=== PATIENT | male | born 1950 | race Caucasian/White ===

== ENCOUNTER 2016-12-24 14:17 | Inpatient (IN) | payer BC ==
[2016-12-24] MEDS ORDERED: Sodium Chloride 0.9% 10 ML Syringe FLUSH PRN (15:01)
--- NOTE | 2016-12-24 15:03 | EDM.PDOC ---
ED HPI GENERAL MEDICAL PROBLEM - General Chief Complaint: Lower Extremity Injury/Pain Stated Complaint: Right foot pain Time Seen by Provider: 12/24/16 14:45 Source of Information: Reports: Patient, RN Notes Reviewed History Limitations: Reports: No Limitations - History of Present Illness INITIAL COMMENTS - FREE TEXT/NARRATIVE: 66 year old male presents to the Ed with two week history of right foot pain. He has a history of intermittent dermatitis to his lower extremities. He says that he developed dermatitis to both his feet about two weeks ago. The rash becomes red, itchy and scaley. The right right has become painful and swollen. He has a scab to the foot with surrounding erythema. He says the pain is severe. He denies fever, chills, or sweats. He denies history of MRSA. He denies calf pain, swelling or erythema. He is diabetic but denies peripheral neuropathy. He was initially evaluated at [facility] in [place]. He was placed on Clindamycin and has taken 6 doses. Right Feet Pain Score (Numeric/FACES): 4 - Related Data Allergies Allergy/AdvReac Type Severity Reaction Status Date / Time IV dye Allergy Renal Uncoded 12/24/16 15:13 Failure Home Meds: Home Meds Aspirin 81 mg PO DAILY 12/24/16 [History] Clindamycin HCl 300 mg PO QID 12/24/16 [History] Dulaglutide [Trulicity] 0.75 mg SQ WEEKLY 12/24/16 [History] Escitalopram [Lexapro] 20 mg PO DAILY 12/24/16 [History] Furosemide 40 mg PO DAILY 12/24/16 [History] Hydrocodone/Acetaminophen [Lorcet 5-325 mg Tablet] 1 each PO ASDIRECTED PRN [History] Liraglutide [Victoza] 1.8 mg SUBCUT DAILY 12/24/16 [History] Metoprolol Succinate [Toprol XL] 100 mg PO BID 12/24/16 [History] Omeprazole 20 mg PO DAILY 12/24/16 [History] Pravastatin [Pravachol] 20 mg PO BEDTIME 12/24/16 [History] amLODIPine [Norvasc] 10 mg PO BEDTIME 12/24/16 [History] hydrOXYzine HCl [Atarax] 25 mg PO ASDIRECTED PRN 12/24/16 [History] metFORMIN HCl [Metformin HCl] 500 mg PO BID 12/24/16 [History] Past Medical History Cardiovascular History: Reports: Hypertension, [place], Stents Other Cardiovascular History: stents x2 Respiratory History: Reports: COPD, Other (See Below) Other Respiratory History: Emphysema Endocrine/Metabolic History: Reports: Diabetes, Type II - Past Surgical History Cardiovascular Surgical History: Reports: Coronary Artery Stent Social & Family History - Family History Family Medical History: Noncontributory - Tobacco Use Packs/Tins Daily: 0.5 - Caffeine Use Caffeine Use: Reports: Coffee - Recreational Drug Use Recreational Drug Use: No Review of Systems - Review of Systems Review Of Systems: See Below Constitutional: Reports: No Symptoms. Denies: Chills, Fever Respiratory: Reports: No Symptoms. Denies: Shortness of Breath, Cough Cardiovascular: Reports: No Symptoms. Denies: Chest Pain Musculoskeletal: Reports: Foot Pain Skin: Reports: Rash, Erythema, Wound, Change in Color Neurological: Reports: No Symptoms. Denies: Numbness, Tingling, Weakness ED EXAM, GENERAL - Physical Exam Exam: See Below Exam Limited By: No Limitations General Appearance: Alert, WD/WN, No Apparent Distress Respiratory/Chest: No Respiratory Distress, Lungs Clear, Normal Breath Sounds Cardiovascular: Normal Peripheral Pulses, Regular Rate, Rhythm, No Murmur GI/Abdominal: Normal Bowel Sounds, Soft, Non-Tender Extremities: Joint Swelling (right foot, ankle ), Increased Warmth (right foot ) , Redness (right foot ) Neurological: Alert, Oriented, Normal Cognition, No Motor/Sensory Deficits Skin Exam: Warm, Dry, Intact, Erythema (right foot ), Increased Warmth, Rash, Other (Scab to dorsal aspect of right foot with surrounding warmth and erythema. CMS intact distally. ) Course - Vital Signs Last Recorded V/S: Last Vital Signs Temp 99.1 F 12/24/16 14:30 Pulse 92 12/24/16 14:30 Resp 18 12/24/16 14:30 BP 157/101 H 12/24/16 14:30 Pulse Ox 94 L 12/24/16 14:30 - Orders/Labs/Meds Orders: Active Orders 24 hr Category Date Time Status Peripheral IV Care [RC] . DIRECTED Care 12/24/16 15:02 Active Sodium Chloride 0.9% [Saline Flush] Med 12/24/16 15:01 Active 10 ml FLUSH ASDIRECTED PRN Peripheral IV Insertion Adult [OM.PC] Stat Oth 12/24/16 15:01 Ordered Medication Orders Sodium Chloride (Saline Flush) 10 ml FLUSH ASDIRECTED PRN PRN Reason: Keep Vein Open Labs: Laboratory Tests 12/24/16 12/24/16 Range/Units 15:02 15:02 WBC 10.96 H (4.23-9.07) K/mm3 RBC 4.94 (4.63-6.08) M/mm3 Hgb 14.8 (13.7-17.5) gm/L Hct 42.1 (40.1-51.0) % MCV 85.2 (79.0-92.2) fl MCH 30.0 (25.7-32.2) pg MCHC 35.2 (32.2-35.5) g/dl RDW Std Deviation 39.7 (35.1-43.9) fL Plt Count 274 (163-337) K/mm3 MPV 9.9 (9.4-12.3) fl Neutrophils % (Manual) 62 H (40-60) % Band Neutrophils % 0 (0-10) % Lymphocytes % (Manual) 31 (20-40) % Atypical Lymphs % 0 % Monocytes % (Manual) 3 (2-10) % Eosinophils % (Manual) 2 (0.8-7.0) % Basophils % (Manual) 2 H (0.2-1.2) Platelet Estimate Adequate Plt Morphology Comment Normal RBC Morph Comment Normal Sodium 140 (136-145) mEq/L Potassium 3.7 (3.5-5.1) mEq/L Chloride 102 (98-107) mEq/L Carbon Dioxide 27 (21-32) mEq/L Anion Gap 14.7 (5-15) BUN 9 (7-18) mg/dL Creatinine 1.0 (0.7-1.3) mg/dL Est Cr Clr Drug Dosing 81.91 mL/min Estimated GFR (MDRD) > 60 (>60) mL/min BUN/Creatinine Ratio 9.0 L (14-18) Glucose 229 H (80-115) mg/dL Calcium 8.7 (8.5-10.1) mg/dL Total Bilirubin 0.4 (0.2-1.0) mg/dL AST 24 (15-37) U/L ALT 46 (16-63) U/L Alkaline Phosphatase 66 (46-116) U/L C-Reactive Protein 4.9 H* (<1.0) mg/dL Total Protein 6.8 (6.4-8.2) g/dl Albumin 3.3 L (3.4-5.0) g/dl Globulin 3.5 gm/dL Albumin/Globulin Ratio 0.9 L (1-2) Meds: Medications Generic Name Dose Route Start Last Admin Trade Name Freq PRN Reason Stop Dose Admin Sodium Chloride 10 ml 12/24/16 15:01 Saline Flush FLUSH ASDIRECTED PRN Keep Vein Open - Re-Assessments/Exams Free Text/Narrative Re-Assessment/Exam: CBC reveals mildly elevated WBC of 10.96. CMP is normal except for glucose of 229. CRP is 4.9. Due to history of DM, severity of the swelling, and suspected abscess I feel the patient needs to be admitted for IV antibiotics. Spoke to Dr. Genao who has accepted care of patient for abscess and cellulitis. I also consulted general surgeon rigging and controls aircraft mechanic Dr. Sutherland. He will come see the patient in the ED and decide if surgical debriedment is needed. Departure - Departure Time of Disposition: 16:51 Disposition: Admitted As Inpatient 68 Condition: Fair Clinical Impression: Abscess Cellulitis Qualifiers: Site of cellulitis: extremity Site of cellulitis of extremity: lower extremity Laterality: right Qualified Code(s): L03.115 - Cellulitis of right lower limb - Discharge Information Referrals: Crissy Keating NP [Primary Care Provider] - Forms: ED Department Discharge - My Orders Last 24 Hours: My Active Orders 12/24/16 15:01 Sodium Chloride 0.9% [Saline Flush] 10 ml FLUSH ASDIRECTED PRN Peripheral IV Insertion Adult [OM.PC] Stat 12/24/16 15:02 Peripheral IV Care [RC] . DIRECTED - Assessment/Plan Last 24 Hours: My Active Orders 12/24/16 15:01 Sodium Chloride 0.9% [Saline Flush] 10 ml FLUSH ASDIRECTED PRN Peripheral IV Insertion Adult [OM.PC] Stat 12/24/16 15:02 Peripheral IV Care [RC] . DIRECTED
[2016-12-24] MEDS ORDERED: HYDROmorphone 1 MG/ML Syringe IVPUSH ONE (17:40)
--- NOTE | 2016-12-24 18:37 | PCM.HP ---
H&P History of Present Illness - General Date of Service: 12/24/16 Admit Problem/Dx: SSTI with Abscess Source of Information: Patient, Family, Provider, RN Notes Reviewed History Limitations: Reports: Physical Impairment - History of Present Illness Initial Comments - Free Text/Narative: This is a 66-year-old white male with past medical history of hypertension, HI status post stents placement 4 years ago, history of COPD, quit smoking 4 years ago after HI, AYANNA on CPAP, and obesity who presents to emergency department with complains of two-week history of right foot pain and was found to have diabetic wound abscess. His chief complaint started with dermatitis on dorsal feet. The rash then became red, itchy, and scaly and slowly became painful and swollen. Patient was initially seen at [facility] in [place]. He was given Clindamycin and has taken 6 doses but without much improvement of his symptoms. Patient carries a history of type 2 diabetes that is poorly controlled. He has been a diabetic for 3 years now. He checks his sugar routinely twice a day. His average sugar runs in the 250s. He is unsure what his last A1c level is. Patient does not see a diabetic specialist. He has not been evaluated by podiatry for routine foot care. His initial workup in emergency department shows a CBC remarkable for WBC of 10.96, neutrophils of 62% and basophils of 2%. His chemistry is remarkable for glucose of 229, CRP of 4.9 and albumin 2.3. Patient has already seen and evaluated by general surgery. He is scheduled for surgical debridement tomorrow. Patient is being admitted for medical management of diabetes wound abscess. He is full code. Right Feet Pain Score (Numeric/FACES): 4 - Related Data Allergies/Adverse Reactions: Allergies Allergy/AdvReac Type Severity Reaction Status Date / Time IV dye Allergy Renal Uncoded 12/24/16 15:13 Failure Home Medications: Home Meds Aspirin 81 mg PO DAILY 12/24/16 [History] Clindamycin HCl 300 mg PO QID 12/24/16 [History] Dulaglutide [Trulicity] 0.75 mg SQ WEEKLY 12/24/16 [History] Escitalopram [Lexapro] 20 mg PO DAILY 12/24/16 [History] Furosemide 40 mg PO DAILY 12/24/16 [History] Hydrocodone/Acetaminophen [Lorcet 5-325 mg Tablet] 1 each PO ASDIRECTED PRN [History] Liraglutide [Victoza] 1.8 mg SUBCUT DAILY 12/24/16 [History] Metoprolol Succinate [Toprol XL] 100 mg PO BID 12/24/16 [History] Omeprazole 20 mg PO DAILY 12/24/16 [History] Pravastatin [Pravachol] 20 mg PO BEDTIME 12/24/16 [History] amLODIPine [Norvasc] 10 mg PO BEDTIME 12/24/16 [History] hydrOXYzine HCl [Atarax] 25 mg PO ASDIRECTED PRN 12/24/16 [History] metFORMIN HCl [Metformin HCl] 500 mg PO BID 12/24/16 [History] Past Medical History Cardiovascular History: Reports: Hypertension, HI, Stents Other Cardiovascular History: stents x2 Respiratory History: Reports: COPD, Other (See Below) Other Respiratory History: Emphysema Psychiatric History: Reports: Depression Endocrine/Metabolic History: Reports: Diabetes, Type II Immunologic History: Reports: None Oncologic (Cancer) History: Reports: None Other Dermatologic History: dermatitis - Infectious Disease History Infectious Disease History: Reports: None - Past Surgical History Cardiovascular Surgical History: Reports: Coronary Artery Stent Social & Family History - Family History Family Medical History: Noncontributory - Tobacco Use Smoking Status *Q: Former Smoker Years of Tobacco use: 55 Packs/Tins Daily: 0.5 Used Tobacco, but Quit: No Tobacco Use Comment: pt. quit smoking cigarrettes after HI. continues to chew .5 cans daily Second Hand Smoke Exposure: No - Caffeine Use Caffeine Use: Reports: Coffee - Recreational Drug Use Recreational Drug Use: No H&P Review of Systems - Review of Systems: Review Of Systems: See Below General: Denies: Fever, Chills, Malaise, Weakness, Fatigue HEENT: Reports: No Symptoms Pulmonary: Denies: Shortness of Breath Cardiovascular: Denies: Chest Pain, Palpitations, Dyspnea on Exertion, Edema, Lightheadedness, Syncope Gastrointestinal: Denies: Abdominal Pain, Decreased Appetite, Nausea, Vomiting Genitourinary: Reports: No Symptoms Musculoskeletal: Reports: No Symptoms, Foot Pain Skin: Reports: Erythema, Wound, Change in Color. Denies: Cyanosis, Jaundice Psychiatric: Denies: Depression, Mood Lability, Anxiety, Agitation, Cravings, Hallucinations, Suicidal Ideation Neurological: Reports: Pre-Existing Deficit, Difficulty Walking, Gait Disturbance. Denies: Confusion, Dizziness, Headache, Numbness, Seizure, Tingling, Weakness Hematologic/Lymphatic: Reports: No Symptoms Immunologic: Reports: No Symptoms Exam - Exam Exam: See Below - Vital Signs Vital Signs: Last Vital Signs Temp 37.3 C 12/24/16 14:30 Pulse 92 12/24/16 14:30 Resp 18 12/24/16 14:30 BP 157/101 H 12/24/16 14:30 Pulse Ox 94 L 12/24/16 14:30 Weight: 120.157 kg - Exam General: Alert, Oriented, Cooperative, Mild Distress, Other (Obese) HEENT: Conjunctiva Clear, EACs Clear, EOMI, Hearing Intact, Mucosa Moist & [place] , Nares Patent, Normal Nasal Septum, Posterior Pharynx Clear, Pupils Equal, Pupils Reactive Neck: Supple, Trachea Midline, +2 Carotid Pulse wo Bruit Lungs: Clear to Auscultation, Normal Respiratory Effort Cardiovascular: Regular Rate, Regular Rhythm GI/Abdominal Exam: Normal Bowel Sounds, Soft, Non-Tender, No Distention, No Abnormal Bruit (Male) Exam: Deferred Rectal (Males) Exam: Deferred Back Exam: Normal Inspection, Decreased Range of Motion Extremities: Normal Inspection, Normal Range of Motion, Non-Tender, No Pedal Edema, Normal Capillary Refill, Pedal Edema (right foot) Peripheral Pulses: 0: Dorsalis Pedis (R), 2+: Posterior Tibial (L), Dorsalis Pedis (L) Skin: Warm, Dry, Intact Skin Alteration Location (Drawings Not To Scale): 1 - superificial erythema 2 - Raised lesion with eschar surrounded by erythema, edema, tender to touch and increased warmth Neuro Extensive - Mental Status: Oriented x3, Normal Cognition, Memory Intact Neuro Extensive - Motor, Sensory, Reflexes: CN II-XII Intact (limited but grossly intact), Abnormal Gait Psychiatric: Alert, Normal Affect, Normal Mood - Patient Data Result Diagrams: 12/25/16 05:49 12/25/16 05:49 *Q Meaningful Use (ADM) - VTE *Q VTE Criteria *Q: - Stroke *Q Stroke Criteria *Q: - AMI *Q AMI Criteria *Q: Problem List Initiated/Reviewed/Updated: Yes Orders Last 24hrs: Active Orders 24 hr Category Date Time Status Code Status [Resuscitation Status] Routine Resus Stat 12/24/16 18:30 Ordered Medication Orders Sodium Chloride (Saline Flush) 10 ml FLUSH ASDIRECTED PRN PRN Reason: Keep Vein Open Last Admin: 12/24/16 17:43 Dose: 10 ml Assessment/Plan Comment:: Assessment/Plan: Acute: Diabetic Foot Wound with Abscess - Risk Factors: Poorly Controlled DM and Hx/o Intermittent Dermatitis - Failed outpatient treatment with Clindamycin - Poor understanding of overall health and diabetes - IV Vancomycin 1 gram BID with Probiotic-pharmacy to renally dose - GS consult with Dr. Sutherland for possible ID in AM Hyperglycemia with DM2 - Poorly controlled: high risk for further accelerated cardiovascular disease - BS on average 150 per ; BS on admission 229 - Unsure of last A1C level is - He is on Victoza, Metformin and Trulicity - Hold Victoza and Trulicity - Start Glipizide 5 mg po BID - A1C check, Urine Microalbumin, Lipid panel in AM - Accu-check QID/HS and ISS - Offered Jardiance on discharge Leukocytosis - 2/2 Above - WBC 10.96 and CRP 4.9 Chronic: HTN Hx/o HI with 2 stents 4 years ago Hx/o COPD, quit smoking 4 years ago DM2 AYANNA on CPAP Peripheral Edema Obesity with BMI of 35.9 Plan: Admit to Med-Surg Routine AM Labs Resume Some Home Meds Bring CPAP tomorrow NPO midnight AHA and ADA diet after surgery in AM PT/OT consult Diabetic Education and Dietary consult SW/CM for d/c planning Additional orders as above Code status: Provider patient and info on Jardiance with cardiovascular benefit.
[2016-12-24] MEDS ORDERED: Polyethylene Glycol 3350 Powder 17 GM Packet PO PRN (19:24)
[2016-12-24] MEDS ORDERED: Bisacodyl 5 MG Tab PO PRN (19:24)
[2016-12-24] MEDS ORDERED: Temazepam 15 MG Cap PO PRN (19:24)
[2016-12-24] MEDS ORDERED: Albuterol/Ipratropium 3.0-0.5 MG/3 ML Neb Soln NEB PRN (19:24)
[2016-12-24] MEDS ORDERED: HYDROmorphone 1 MG/ML Syringe IVPUSH PRN (19:24)
[2016-12-24] MEDS ORDERED: Acetaminophen 325 MG Tab PO PRN (19:24)
[2016-12-24] MEDS ORDERED: Promethazine 12.5 MG in Sodium Chloride 0.9% 50 ML IV PRN (19:24)
[2016-12-24] MEDS ORDERED: Ondansetron 4 MG/2 ML SDV IV PRN (19:24)
[2016-12-24] MEDS ORDERED: Docusate Sodium 100 MG Cap PO PRN (19:24)
[2016-12-24] MEDS ORDERED: LORazepam 2 MG/ML MDV IV PRN (19:24)
[2016-12-24] MEDS ORDERED: Acetaminophen/HYDROcodone 325-5 MG Tab PO PRN (19:24)
[2016-12-24] MEDS ORDERED: hydrOXYzine HCl 25 MG Tab PO PRN (19:33)
[2016-12-24] MEDS ORDERED: Metoprolol Tartrate 5 MG/5 ML SDV IVPUSH PRN (19:35)
[2016-12-24] MEDS ORDERED: hydrALAZINE 20 MG/ML SDV IVPUSH PRN (19:35)
[2016-12-24] MEDS ORDERED: 50% Dextrose in Water 50 ML Syringe IVPUSH PRN (19:37)
[2016-12-24] MEDS: Insulin Aspart 100 Units/ML 3 ML Pen SUBCUT SCH ×2 (21:39→22:47)
[2016-12-24] MEDS: Vancomycin 1 GM, Vancomycin 500 MG in Sodium Chloride 0.9% 500 ML IV SCH (21:41)
[2016-12-24] MEDS: metFORMIN 500 MG Tab PO SCH (21:43)
[2016-12-24] MEDS: glipiZIDE 5 MG Tab.ER PO SCH (21:44)
[2016-12-24] MEDS: Simvastatin 10 MG Tab PO SCH (21:47)
[2016-12-24] MEDS: amLODIPine 10 MG Tab PO SCH (21:47)
[2016-12-25] MEDS: Vancomycin 1 GM, Vancomycin 500 MG in Sodium Chloride 0.9% 500 ML IV SCH ×2 (08:45→20:45)
[2016-12-25] MEDS: Insulin Aspart 100 Units/ML 3 ML Pen SUBCUT SCH ×5 (08:45→23:15)
[2016-12-25] MEDS: Metoprolol Succinate 50 MG Tab.ER PO SCH ×2 (08:53→20:43)
--- NOTE | 2016-12-25 08:53 | PCM.PREANE ---
Preanesthetic Assessment - Anesthesia/Transfusion/Family Hx Anesthesia History: Prior Anesthesia Without Reaction Family History of Anesthesia Reaction: No Transfusion History: No Prior Transfusion(s) - Review of Systems General: No Symptoms Pulmonary: No Symptoms Cardiovascular: No Symptoms Gastrointestinal: No Symptoms Neurological: No Symptoms Other: Reports: Diabetes - Physical Assessment NPO Status Date: 12/24/16 NPO Status Time: 19:00 Pulse: 78 O2 Sat by Pulse Oximetry: 94 Respiratory Rate: 18 Blood Pressure: 152/93 Temperature: 98.4 F Vital Signs: Last Vital Signs Temp 98.4 F 12/24/16 21:49 Pulse 78 12/24/16 21:49 Resp 18 12/24/16 21:49 BP 152/93 H 12/24/16 21:49 Pulse Ox 94 L 12/24/16 21:49 Height: 6 ft Weight: 120.157 kg ASA Class: 3E Mental Status: Alert & Oriented x3 Airway Class: Mallampati = 1 Dentition: Reports: Dentures (top) Thyro-Mental Finger Breadths: 3 Mouth Opening Finger Breadths: 3 ROM/Head Extension: Full Lungs: Clear to Auscultation, Normal Respiratory Effort Cardiovascular: Regular Rate, Regular Rhythm - Lab Values: Laboratory Last Values WBC 9.51 K/mm3 (4.23-9.07) H 12/25/16 05:49 RBC 4.83 M/mm3 (4.63-6.08) 12/25/16 05:49 Hgb 14.5 gm/L (13.7-17.5) 12/25/16 05:49 Hct 41.4 % (40.1-51.0) 12/25/16 05:49 MCV 85.7 fl (79.0-92.2) 12/25/16 05:49 MCH 30.0 pg (25.7-32.2) 12/25/16 05:49 MCHC 35.0 g/dl (32.2-35.5) 12/25/16 05:49 RDW Std Deviation 39.9 fL (35.1-43.9) 12/25/16 05:49 Plt Count 292 K/mm3 (163-337) 12/25/16 05:49 MPV 9.9 fl (9.4-12.3) 12/25/16 05:49 Neut % (Auto) 62.2 % (34.0-67.9) 12/25/16 05:49 Lymph % (Auto) 20.0 % (21.8-53.1) L 12/25/16 05:49 [place] % (Auto) 12.5 % (5.3-12.2) H 12/25/16 05:49 Eos % (Auto) 4.5 (0.8-7.0) 12/25/16 05:49 Baso % (Auto) 0.4 % (0.1-1.2) 12/25/16 05:49 Neut # (Auto) 5.91 K/mm3 (1.78-5.38) H 12/25/16 05:49 Lymph # (Auto) 1.90 K/mm3 (1.32-3.57) 12/25/16 05:49 [place] # (Auto) 1.19 K/mm3 (0.30-0.82) H 12/25/16 05:49 Eos # (Auto) 0.43 K/mm3 (0.04-0.54) 12/25/16 05:49 Baso # (Auto) 0.04 K/mm3 (0.01-0.08) 12/25/16 05:49 Neutrophils % (Manual) 62 % (40-60) H 12/24/16 15:02 Band Neutrophils % 0 % (0-10) 12/24/16 15:02 Lymphocytes % (Manual) 31 % (20-40) 12/24/16 15:02 Atypical Lymphs % 0 % 12/24/16 15:02 Monocytes % (Manual) 3 % (2-10) 12/24/16 15:02 Eosinophils % (Manual) 2 % (0.8-7.0) 12/24/16 15:02 Basophils % (Manual) 2 (0.2-1.2) H 12/24/16 15:02 Platelet Estimate Adequate 12/24/16 15:02 Plt Morphology Comment Normal 12/24/16 15:02 RBC Morph Comment Normal 12/24/16 15:02 Sodium 139 mEq/L (136-145) 12/25/16 05:49 Potassium 3.9 mEq/L (3.5-5.1) 12/25/16 05:49 Chloride 103 mEq/L (98-107) 12/25/16 05:49 Carbon Dioxide 28 mEq/L (21-32) 12/25/16 05:49 Anion Gap 11.9 (5-15) 12/25/16 05:49 BUN 7 mg/dL (7-18) 12/25/16 05:49 Creatinine 0.8 mg/dL (0.7-1.3) 12/25/16 05:49 Est Cr Clr Drug Dosing 102.39 mL/min 12/25/16 05:49 Estimated GFR (MDRD) > 60 mL/min (>60) 12/25/16 05:49 BUN/Creatinine Ratio 8.8 (14-18) L 12/25/16 05:49 Glucose 208 mg/dL (80-115) H 12/25/16 05:49 POC Glucose 195 mg/dL (80-115) H 12/25/16 07:39 Hemoglobin A1c 8.90 % (4.50-6.20) H 12/25/16 05:49 Calcium 8.4 mg/dL (8.5-10.1) L 12/25/16 05:49 Magnesium 2.0 mg/dl (1.8-2.4) 12/25/16 05:49 Total Bilirubin 0.4 mg/dL (0.2-1.0) 12/24/16 15:02 AST 24 U/L (15-37) 12/24/16 15:02 ALT 46 U/L (16-63) 12/24/16 15:02 Alkaline Phosphatase 66 U/L (46-116) 12/24/16 15:02 C-Reactive Protein 4.9 mg/dL (<1.0) H* 12/25/16 05:49 Total Protein 6.8 g/dl (6.4-8.2) 12/24/16 15:02 Albumin 3.3 g/dl (3.4-5.0) L 12/24/16 15:02 Globulin 3.5 gm/dL 12/24/16 15:02 Albumin/Globulin Ratio 0.9 (1-2) L 12/24/16 15:02 Triglycerides 140 mg/dL (<150) 12/25/16 05:49 Cholesterol 106 mg/dL (<200) 12/25/16 05:49 LDL Cholesterol Direct 63 mg/dL (<100) 12/25/16 05:49 HDL Cholesterol 26.0 mg/dL (40-59) L 12/25/16 05:49 Free T4 0.99 ng/dL (0.76-1.46) 12/25/16 05:49 TSH 3rd Generation 1.770 uIU/mL (0.358-3.74) 12/25/16 05:49 - Allergies Allergies/Adverse Reactions: Allergies Allergy/AdvReac Type Severity Reaction Status Date / Time IV dye Allergy Renal Uncoded 12/24/16 15:13 Failure - Blood Blood Available: No - Acknowledgements Anesthesia Type Planned: General Anesthesia, MAC Pt an Appropriate Candidate for the Planned Anesthesia: Yes Alternatives and Risks of Anesthesia Discussed w Pt/Guardian: Yes Pt/Guardian Understands and Agrees with Anesthesia Plan: Yes PreAnesthesia Questionnaire Cardiovascular History: Reports: High Cholesterol, Hypertension, [place], Stents Other Cardiovascular History: stents x2 Respiratory History: Reports: COPD, Other (See Below) Other Respiratory History: Emphysema Psychiatric History: Reports: Depression Endocrine/Metabolic History: Reports: Diabetes, Type II, Obesity/BMI 30+ Immunologic History: Reports: None Oncologic (Cancer) History: Reports: None Other Dermatologic History: dermatitis - Infectious Disease History Infectious Disease History: Reports: None - Past Surgical History Cardiovascular Surgical History: Reports: Coronary Artery Stent GI Surgical History: Reports: Cholecystectomy - SUBSTANCE USE Smoking Status *Q: Former Smoker (quit 4 years ago) Tobacco Use Within Last Twelve Months: Snuff/Dip Second Hand Smoke Exposure: No Days Per Week of Alcohol Use: 1 ( seldom) Recreational Drug Use History: No - HOME MEDS Home Medications: Home Meds Aspirin 81 mg PO DAILY 12/24/16 [History] Clindamycin HCl 300 mg PO QID 12/24/16 [History] Dulaglutide [Trulicity] 0.75 mg SQ WEEKLY 12/24/16 [History] Escitalopram [Lexapro] 20 mg PO DAILY 12/24/16 [History] Furosemide 40 mg PO DAILY 12/24/16 [History] Hydrocodone/Acetaminophen [Lorcet 5-325 mg Tablet] 1 each PO ASDIRECTED PRN [History] Liraglutide [Victoza] 1.8 mg SUBCUT DAILY 12/24/16 [History] Metoprolol Succinate [Toprol XL] 100 mg PO BID 12/24/16 [History] Omeprazole 20 mg PO DAILY 12/24/16 [History] Pravastatin [Pravachol] 20 mg PO BEDTIME 12/24/16 [History] amLODIPine [Norvasc] 10 mg PO BEDTIME 12/24/16 [History] hydrOXYzine HCl [Atarax] 25 mg PO ASDIRECTED PRN 12/24/16 [History] metFORMIN HCl [Metformin HCl] 500 mg PO BID 12/24/16 [History] - CURRENT (IN HOUSE) MEDS Current Meds: Current Medications Acetaminophen (Tylenol) 650 mg PO Q4H PRN PRN Reason: Pain (Mild 1-3)/fever Hydrocodone Bitart/Acetaminophen ([place] 325-5 Mg) 1 tab PO Q4H PRN PRN Reason: Pain (moderate 4-6) Albuterol/Ipratropium (Duoneb 3.0-0.5 Mg/3 Ml) 3 ml NEB Q4H PRN PRN Reason: Shortness Of Breath/wheezing Amlodipine Besylate (Norvasc) 10 mg PO BEDTIME [facility] Last Admin: 12/24/16 21:47 Dose: 10 mg Aspirin (Aspirin) 81 mg PO DAILY [facility] Bisacodyl (Dulcolax) 5 mg PO DAILY PRN PRN Reason: Constipation Citalopram Hydrobromide (Celexa) 40 mg PO DAILY [facility] Dextrose/Water (Dextrose 50% In Water) 50 ml IVPUSH ASDIRECTED PRN PRN Reason: Hypoglycemia Docusate Sodium (Colace) 100 mg PO BID PRN PRN Reason: Constipation Glipizide (Glucotrol Xl) 5 mg PO BID [facility] Last Admin: 12/24/16 21:44 Dose: 5 mg Hydralazine HCl (Apresoline) 20 mg IVPUSH Q4H PRN PRN Reason: Hypertension Hydromorphone HCl (Dilaudid) 1 mg IVPUSH Q4H PRN PRN Reason: Pain (severe 7-10) Hydroxyzine HCl (Atarax) 25 mg PO QID PRN PRN Reason: Itching Promethazine HCl 12.5 mg/ (Sodium Chloride) 50.5 mls @ 100 mls/hr IV Q6H PRN PRN Reason: Nausea/Vomiting Vancomycin HCl 1 gm/Vancomycin HCl 500 mg/ Sodium Chloride 500 mls @ 333.333 mls/hr IV Q12H [facility] Last Admin: 12/25/16 08:45 Dose: 333.333 mls/hr Insulin Aspart (Novolog) 0 unit SUBCUT QIDACANDBED [facility] PRN Reason: Protocol Last Admin: 12/24/16 22:47 Dose: Not Given Lorazepam (Ativan) 1 mg IV Q6H PRN PRN Reason: Anxiety Metformin HCl (Glucophage) 500 mg PO BID [facility] Last Admin: 12/24/16 21:43 Dose: 500 mg Metoprolol Succinate (Toprol Xl) 100 mg PO BID [facility] Metoprolol Tartrate (Lopressor) 5 mg IVPUSH Q4H PRN PRN Reason: Tachycardia Ondansetron HCl (Zofran) 4 mg IV Q6H PRN PRN Reason: Nausea/Vomiting Pantoprazole Sodium (Protonix) 40 mg PO DAILY@0700 [facility] Polyethylene Glycol (Miralax) 17 gm PO DAILY PRN PRN Reason: Constipation Saccharomyces Boulardii (Florastor) 250 mg PO BID [facility] Senna/Docusate Sodium (Senna Plus) 1 tab PO BID PRN PRN Reason: Constipation Simvastatin (Zocor) 10 mg PO BEDTIME [facility] Last Admin: 12/24/16 21:47 Dose: 10 mg Sodium Chloride (Saline Flush) 10 ml FLUSH ASDIRECTED PRN PRN Reason: Keep Vein Open Last Admin: 12/24/16 17:43 Dose: 10 ml Temazepam (Restoril) 15 mg PO BEDTIME PRN PRN Reason: Sleep Vancomycin HCl (Pharmacy To Dose - Vancomycin) 0 dose .XX ASDIRECTED PRN PRN Reason: RX TO DOSE IV VANCOMYCIN Discontinued Medications Hydromorphone HCl (Dilaudid) 1 mg IVPUSH ONETIME ONE Stop: 12/24/16 17:41 Last Admin: 12/24/16 17:45 Dose: 1 mg
[2016-12-25] MEDS ORDERED: Lidocaine 1% 50 ML MDV ONE (09:06)
[2016-12-25] MEDS ORDERED: Lidocaine 1% 4 ML ONE (09:16)
[2016-12-25] MEDS ORDERED: Propofol 200 MG/20 ML SDV ONE (09:16)
[2016-12-25] MEDS ORDERED: fentaNYL 100 MCG/2 ML SDV ONE (09:17)
[2016-12-25] MEDS ORDERED: Midazolam 1 MG/ML 2 ML SDV ONE (09:17)
[2016-12-25] MEDS ORDERED: fentaNYL 100 MCG/2 ML SDV IVPUSH PRN (09:42)
[2016-12-25] MEDS ORDERED: Meperidine PF 50 MG/ML Syringe IVPUSH PRN (09:42)
[2016-12-25] MEDS ORDERED: Ondansetron 4 MG/2 ML SDV IVPUSH PRN (09:42)
--- NOTE | 2016-12-25 10:14 | PCM.POSTAN ---
POST ANESTHESIA ASSESSMENT - MENTAL STATUS Mental Status: Alert, Oriented - VITAL SIGNS Pulse Rate: 66 SaO2: 95 Resp Rate: 17 Blood Pressure: 119/85 Temperature: 98.7 F - RESPIRATORY Respiratory Status: Respiratory Rate WNL, Airway Patent, O2 Saturation Stable, Supplemental Oxygen - CARDIOVASCULAR CV Status: Pulse Rate WNL, Blood Pressure Stable - GASTROINTESTINAL GI Status: No Symptoms - PAIN Pain Score: 0 - POST OP HYDRATION Hydration Status: Adequate & Stable
--- NOTE | 2016-12-25 10:46 | PCM48HPAN ---
Post Anesthesia Note - EVALUATION WITHIN 48HRS OF ANESTHETIC Vital Signs in Normal Range: Yes Patient Participated in Evaluation: Yes Respiratory Function Stable: Yes Airway Patent: Yes Cardiovascular Function Stable: Yes Hydration Status Stable: Yes Pain Control Satisfactory: Yes Nausea and Vomiting Control Satisfactory: Yes Mental Status Recovered: Yes
[2016-12-25] MEDS: Citalopram 20 MG Tab PO SCH (11:39)
[2016-12-25] MEDS: metFORMIN 500 MG Tab PO SCH (11:39)
[2016-12-25] MEDS: Aspirin 81 MG Tab.Chew PO SCH (11:39)
[2016-12-25] MEDS: Pantoprazole 40 MG Tab.CR PO SCH (11:39)
[2016-12-25] MEDS: Saccharomyces Boulardii (Probiotic) 250 MG Cap PO SCH ×2 (11:39→20:34)
[2016-12-25] MEDS ORDERED: Lactated Ringers 1,000 ML ONE (12:01)
[2016-12-25] MEDS: glipiZIDE 5 MG Tab.ER PO SCH (12:03)
--- NOTE | 2016-12-25 13:21 | PCM.PN ---
- General Info Date of Service: 12/25/16 Admission Dx/Problem (Free Text): SSTI with Abscess Patient is seen postoperatively, rt foot I&D this morning. Foot is wrapped with RONEN wrap. Doing well, no n/v. Pain is controlled and minimal. No SOB, CP. No other concerns. Functional Status: Reports: Pain Controlled, Tolerating Diet (is hungry), Ambulating (was up to BR since returning from surgery. ), Urinating, Incentive Spirometry - Review of Systems General: Reports: No Symptoms. Denies: Fever HEENT: Reports: No Symptoms Pulmonary: Reports: No Symptoms Cardiovascular: Reports: No Symptoms Gastrointestinal: Reports: No Symptoms Genitourinary: Reports: No Symptoms Skin: Reports: Other (dressing to rt foot) - Patient Data Vitals - Most Recent: Last Vital Signs Temp 97.9 F 12/25/16 11:04 Pulse 65 12/25/16 11:04 Resp 16 12/25/16 10:50 BP 142/93 H 12/25/16 11:04 Pulse Ox 97 12/25/16 11:04 Weight - Most Recent: 264 lb 14.4 oz I&O - Last 24 Hours: Intake & Output 12/24/16 12/25/16 12/25/16 22:59 06:59 14:59 Intake Total 180 0 Balance 180 0 Lab Results Last 24 Hours: Laboratory Results - last 24 hr 12/24/16 12/25/16 12/25/16 Range/Units 21:38 05:49 05:49 WBC 9.51 H (4.23-9.07) K/mm3 RBC 4.83 (4.63-6.08) M/mm3 Hgb 14.5 (13.7-17.5) gm/L Hct 41.4 (40.1-51.0) % MCV 85.7 (79.0-92.2) fl MCH 30.0 (25.7-32.2) pg MCHC 35.0 (32.2-35.5) g/dl RDW Std Deviation 39.9 (35.1-43.9) fL Plt Count 292 (163-337) K/mm3 MPV 9.9 (9.4-12.3) fl Neut % (Auto) 62.2 (34.0-67.9) % Lymph % (Auto) 20.0 L (21.8-53.1) % [place] % (Auto) 12.5 H (5.3-12.2) % Eos % (Auto) 4.5 (0.8-7.0) Baso % (Auto) 0.4 (0.1-1.2) % Neut # (Auto) 5.91 H (1.78-5.38) K/mm3 Lymph # (Auto) 1.90 (1.32-3.57) K/mm3 [place] # (Auto) 1.19 H (0.30-0.82) K/mm3 Eos # (Auto) 0.43 (0.04-0.54) K/mm3 Baso # (Auto) 0.04 (0.01-0.08) K/mm3 Sodium 139 (136-145) mEq/L Potassium 3.9 (3.5-5.1) mEq/L Chloride 103 (98-107) mEq/L Carbon Dioxide 28 (21-32) mEq/L Anion Gap 11.9 (5-15) BUN 7 (7-18) mg/dL Creatinine 0.8 (0.7-1.3) mg/dL Est Cr Clr Drug Dosing 102.39 mL/min Estimated GFR (MDRD) > 60 (>60) mL/min BUN/Creatinine Ratio 8.8 L (14-18) Glucose 208 H (80-115) mg/dL POC Glucose 177 H (80-115) mg/dL Hemoglobin A1c (4.50-6.20) % Calcium 8.4 L (8.5-10.1) mg/dL Magnesium 2.0 (1.8-2.4) mg/dl C-Reactive Protein 4.9 H* (<1.0) mg/dL Triglycerides 140 (<150) mg/dL Cholesterol 106 (<200) mg/dL LDL Cholesterol Direct 63 (<100) mg/dL HDL Cholesterol 26.0 L (40-59) mg/dL Free T4 0.99 (0.76-1.46) ng/dL TSH 3rd Generation 1.770 (0.358-3.74) uIU/mL 12/25/16 12/25/16 12/25/16 Range/Units 05:49 07:39 11:36 WBC (4.23-9.07) K/mm3 RBC (4.63-6.08) M/mm3 Hgb (13.7-17.5) gm/L Hct (40.1-51.0) % MCV (79.0-92.2) fl MCH (25.7-32.2) pg MCHC (32.2-35.5) g/dl RDW Std Deviation (35.1-43.9) fL Plt Count (163-337) K/mm3 MPV (9.4-12.3) fl Neut % (Auto) (34.0-67.9) % Lymph % (Auto) (21.8-53.1) % [place] % (Auto) (5.3-12.2) % Eos % (Auto) (0.8-7.0) Baso % (Auto) (0.1-1.2) % Neut # (Auto) (1.78-5.38) K/mm3 Lymph # (Auto) (1.32-3.57) K/mm3 [place] # (Auto) (0.30-0.82) K/mm3 Eos # (Auto) (0.04-0.54) K/mm3 Baso # (Auto) (0.01-0.08) K/mm3 Sodium (136-145) mEq/L Potassium (3.5-5.1) mEq/L Chloride (98-107) mEq/L Carbon Dioxide (21-32) mEq/L Anion Gap (5-15) BUN (7-18) mg/dL Creatinine (0.7-1.3) mg/dL Est Cr Clr Drug Dosing mL/min Estimated GFR (MDRD) (>60) mL/min BUN/Creatinine Ratio (14-18) Glucose (80-115) mg/dL POC Glucose 195 H 147 H (80-115) mg/dL Hemoglobin A1c 8.90 H (4.50-6.20) % Calcium (8.5-10.1) mg/dL Magnesium (1.8-2.4) mg/dl C-Reactive Protein (<1.0) mg/dL Triglycerides (<150) mg/dL Cholesterol (<200) mg/dL LDL Cholesterol Direct (<100) mg/dL HDL Cholesterol (40-59) mg/dL Free T4 (0.76-1.46) ng/dL TSH 3rd Generation (0.358-3.74) uIU/mL Med Orders - Current: Current Medications Acetaminophen (Tylenol) 650 mg PO Q4H PRN PRN Reason: Pain (Mild 1-3)/fever Hydrocodone Bitart/Acetaminophen ([place] 325-5 Mg) 1 tab PO Q4H PRN PRN Reason: Pain (moderate 4-6) Last Admin: 12/25/16 12:53 Dose: 1 tab Albuterol/Ipratropium (Duoneb 3.0-0.5 Mg/3 Ml) 3 ml NEB Q4H PRN PRN Reason: Shortness Of Breath/wheezing Amlodipine Besylate (Norvasc) 10 mg PO BEDTIME [facility] Last Admin: 12/24/16 21:47 Dose: 10 mg Aspirin (Aspirin) 81 mg PO DAILY [facility] Last Admin: 12/25/16 11:39 Dose: 81 mg Bisacodyl (Dulcolax) 5 mg PO DAILY PRN PRN Reason: Constipation Citalopram Hydrobromide (Celexa) 40 mg PO DAILY [facility] Last Admin: 12/25/16 11:39 Dose: 40 mg Dextrose/Water (Dextrose 50% In Water) 50 ml IVPUSH ASDIRECTED PRN PRN Reason: Hypoglycemia Docusate Sodium (Colace) 100 mg PO BID PRN PRN Reason: Constipation Furosemide (Lasix) 40 mg PO DAILY [facility] Glipizide (Glucotrol Xl) 5 mg PO BID [facility] Last Admin: 12/25/16 12:03 Dose: Not Given Hydralazine HCl (Apresoline) 20 mg IVPUSH Q4H PRN PRN Reason: Hypertension Last Admin: 12/25/16 11:52 Dose: 20 mg Hydromorphone HCl (Dilaudid) 1 mg IVPUSH Q4H PRN PRN Reason: Pain (severe 7-10) Hydroxyzine HCl (Atarax) 25 mg PO QID PRN PRN Reason: Itching Promethazine HCl 12.5 mg/ (Sodium Chloride) 50.5 mls @ 100 mls/hr IV Q6H PRN PRN Reason: Nausea/Vomiting Vancomycin HCl 1 gm/Vancomycin HCl 500 mg/ Sodium Chloride 500 mls @ 333.333 mls/hr IV Q12H [facility] Last Admin: 12/25/16 08:45 Dose: 333.333 mls/hr Insulin Aspart (Novolog) 0 unit SUBCUT QIDACANDBED [facility] PRN Reason: Protocol Last Admin: 12/25/16 11:38 Dose: Not Given Lisinopril (Prinivil) 5 mg PO DAILY [facility] Lorazepam (Ativan) 1 mg IV Q6H PRN PRN Reason: Anxiety Metformin HCl (Glucophage) 500 mg PO BID [facility] Last Admin: 12/25/16 11:39 Dose: 500 mg Metoprolol Succinate (Toprol Xl) 100 mg PO BID [facility] Last Admin: 12/25/16 08:53 Dose: 100 mg Metoprolol Tartrate (Lopressor) 5 mg IVPUSH Q4H PRN PRN Reason: Tachycardia Ondansetron HCl (Zofran) 4 mg IV Q6H PRN PRN Reason: Nausea/Vomiting Pantoprazole Sodium (Protonix) 40 mg PO DAILY@0700 [facility] Last Admin: 12/25/16 11:39 Dose: 40 mg Polyethylene Glycol (Miralax) 17 gm PO DAILY PRN PRN Reason: Constipation Saccharomyces Boulardii (Florastor) 250 mg PO BID [facility] Last Admin: 12/25/16 11:39 Dose: 250 mg Senna/Docusate Sodium (Senna Plus) 1 tab PO BID PRN PRN Reason: Constipation Simvastatin (Zocor) 10 mg PO BEDTIME [facility] Last Admin: 12/24/16 21:47 Dose: 10 mg Sodium Chloride (Saline Flush) 10 ml FLUSH ASDIRECTED PRN PRN Reason: Keep Vein Open Last Admin: 12/24/16 17:43 Dose: 10 ml Temazepam (Restoril) 15 mg PO BEDTIME PRN PRN Reason: Sleep Vancomycin HCl (Pharmacy To Dose - Vancomycin) 0 dose .XX ASDIRECTED PRN PRN Reason: RX TO DOSE IV VANCOMYCIN Discontinued Medications Fentanyl (Sublimaze) Confirm Administered Dose 100 mcg .ROUTE .STK-MED ONE Stop: 12/25/16 09:18 Fentanyl (Sublimaze) 50 mcg IVPUSH Q5M PRN PRN Reason: Pain Stop: 12/25/16 12:00 Hydromorphone HCl (Dilaudid) 1 mg IVPUSH ONETIME ONE Stop: 12/24/16 17:41 Last Admin: 12/24/16 17:45 Dose: 1 mg Lidocaine HCl (Xylocaine-Mpf 1%) Confirm Administered Dose 4 mls @ as directed .ROUTE .STK-MED ONE Stop: 12/25/16 09:17 Lactated Ringer's (Ringers, Lactated) Confirm Administered Dose 1,000 mls @ as directed .ROUTE .STK-MED ONE Stop: 12/25/16 12:02 Lidocaine HCl (Xylocaine 1%) Confirm Administered Dose 50 ml .ROUTE .STK-MED ONE Stop: 12/25/16 09:07 Meperidine HCl (Demerol) 12.5 mg IVPUSH ONETIME PRN PRN Reason: shivering Stop: 12/25/16 12:00 Midazolam HCl (Versed 1 Mg/Ml) Confirm Administered Dose 2 mg .ROUTE .STK-MED ONE Stop: 12/25/16 09:18 Ondansetron HCl (Zofran) 4 mg IVPUSH ONETIME PRN PRN Reason: Nausea/Vomiting Stop: 12/25/16 12:00 Propofol (Diprivan 20 Ml) Confirm Administered Dose 200 mg .ROUTE .STK-MED ONE Stop: 12/25/16 09:17 - Exam General: Alert, Oriented, Cooperative, No Acute Distress HEENT: Pupils Equal, EOMI, Mucous Membr. Moist/[place] Neck: Supple Lungs: Clear to Auscultation, Normal Respiratory Effort, Decreased Breath Sounds (bases) Cardiovascular: Regular Rate, Regular Rhythm GI/Abdominal Exam: Normal Bowel Sounds, Soft, Non-Tender (Male) Exam: Deferred Back Exam: Normal Inspection Extremities: Other (dressing to rt foot CDI, toes with CMS + and = bilat) Peripheral Pulses: 1+: Posterior Tibial (L), Dorsalis Pedis (L) Wound/Incisions: Dressing Dry and Intact Neurological: No New Focal Deficit Psy/Mental Status: Alert, Normal Affect, Normal Mood - Problem List & Annotations (1) Cellulitis SNOMED Code(s): 649484252 Code(s): L03.90 - CELLULITIS, UNSPECIFIED Status: Acute Priority: High Current Visit: Yes Qualifiers: Site of cellulitis: extremity Site of cellulitis of extremity: lower extremity Laterality: right Qualified Code(s): L03.115 - Cellulitis of right lower limb (2) Abscess SNOMED Code(s): 132989640 Code(s): L02.91 - CUTANEOUS ABSCESS, UNSPECIFIED Status: Acute Priority: High Current Visit: Yes (3) Diabetes type 2, uncontrolled SNOMED Code(s): 04435108, 613091907 Code(s): E11.65 - TYPE 2 DIABETES MELLITUS WITH HYPERGLYCEMIA Status: Chronic Priority: High Current Visit: Yes Qualifiers: Diabetes mellitus complication status: with skin complications Diabetes mellitus complication detail: with foot ulcer Diabetes mellitus buttermaker helper insulin use: unspecified mcfp insulin use status Qualified Code(s): E11.621 - Type 2 diabetes mellitus with foot ulcer; E11.65 - Type 2 diabetes mellitus with hyperglycemia; L97.509 - Non-pressure chronic ulcer of other part of unspecified foot with unspecified severity (4) Tobacco use disorder SNOMED Code(s): 351028334, 779225975 Code(s): F17.200 - NICOTINE DEPENDENCE, UNSPECIFIED, UNCOMPLICATED Status: Chronic Priority: High Current Visit: Yes (5) Hx of coronary artery disease SNOMED Code(s): 020983602 Code(s): Z86.79 - PERSONAL HISTORY OF OTHER DISEASES OF THE CIRCULATORY SYSTEM Status: Chronic Priority: Medium Current Visit: Yes (6) Hypothyroid SNOMED Code(s): 92855251 Code(s): E03.9 - HYPOTHYROIDISM, UNSPECIFIED Status: Chronic Priority: Medium Current Visit: Yes Qualifiers: Hypothyroidism type: unspecified Qualified Code(s): E03.9 - Hypothyroidism , unspecified - Problem List Review Problem List Initiated/Reviewed/Updated: Yes - My Orders Last 24 Hours: My Active Orders 12/25/16 13:15 Furosemide [Lasix] 40 mg PO DAILY Lisinopril [Prinivil] 5 mg PO DAILY - Plan Plan:: Assessment/Plan: Acute: Diabetic Foot Wound with Abscess - Risk Factors: Poorly Controlled DM and Hx/o Intermittent Dermatitis, ? PVD with hx of CAD and continued nicotine use (55 pack year hx of smoking, now chewing tobacco) - Failed outpatient treatment with Clindamycin - Poor understanding of overall health and diabetes - IV Vancomycin 1 gram BID with Probiotic-pharmacy to renally dose - GS consult with Dr. Sutherland for I&D Hyperglycemia with DM2 - Poorly controlled: high risk for further accelerated cardiovascular disease - BS on average 150 per ; BS on admission 229 - A1C 8.9 - He is on Victoza, Metformin and Trulicity - Hold Victoza and Trulicity - Start Glipizide 5 mg po BID - A1C check, Urine Microalbumin, Lipid panel in AM - Accu-check QID/HS and ISS - Dr. Genao Offered Jardiance on discharge and discussed this with patient and family and length Leukocytosis - 2/2 Above - WBC 10.96 and CRP 4.9 Chronic: HTN- uncontrolled at this point; with DM is not on ACEI, add lisinopril 5mg daily PO Hx/o CAD/AK with 2 stents 4 years ago Hx/o COPD, quit smoking 4 years ago; 55 pack yr hx; continues to chew tobacco DM2- uncontrolled AYANNA on CPAP Peripheral Edema Obesity with BMI of 35.9 Plan: Admit to Med-Surg Routine AM Labs Resume Some Home Meds Bring CPAP tomorrow NPO midnight AHA and ADA diet after surgery in AM PT/OT consult Diabetic Education and Dietary consult SW/CM for d/c planning---likely DC in next 24-48 hours pending cultures and surgeon's recommendations. Additional orders as above Code status: Full Code Dr. Genao provided patient and info on Jardiance with cardiovascular benefit. Consider vascular workup as outpatient as likely has significant PVD with multiple risk factors.
[2016-12-25] MEDS: Furosemide 40 MG Tab PO SCH (14:14)
[2016-12-25] MEDS: Lisinopril 5 MG Tab PO SCH (14:14)
[2016-12-25] MEDS: Acetaminophen/HYDROcodone 325-5 MG Tab PO PRN (18:54)
[2016-12-25] MEDS: Simvastatin 10 MG Tab PO SCH (20:34)
[2016-12-25] MEDS: amLODIPine 10 MG Tab PO SCH (20:35)
[2016-12-26] MEDS: Pantoprazole 40 MG Tab.CR PO SCH (05:59)
[2016-12-26] MEDS: Acetaminophen/HYDROcodone 325-5 MG Tab PO PRN ×3 (06:08→21:12)
[2016-12-26] MEDS ORDERED: metFORMIN 500 MG Tab PO SCH (07:50)
--- NOTE | 2016-12-26 07:50 | PCM.PN ---
- General Info Date of Service: 12/26/16 Admission Dx/Problem (Free Text): SSTI with Abscess Subjective Update: Follow Up Functional Status: Reports: Pain Controlled, Tolerating Diet, Urinating. Denies : New Symptoms - Review of Systems General: Denies: Fever, Weakness, Fatigue, Malaise, Chills HEENT: Reports: No Symptoms Pulmonary: Denies: Shortness of Breath Cardiovascular: Denies: Chest Pain, Palpitations, Dyspnea on Exertion, Edema, Lightheadedness Gastrointestinal: Denies: Abdominal Pain, Decreased Appetite, Nausea, Vomiting Genitourinary: Reports: No Symptoms Musculoskeletal: Reports: No Symptoms Skin: Reports: No Symptoms Neurological: Reports: Difficulty Walking, Gait Disturbance. Denies: Confusion , Dizziness, Weakness Psychiatric: Denies: Confusion, Depression, Mood Lability, Anxiety, Agitation, Cravings, Hallucinations, Suicidal Ideation Systems Review Comment:: No overnight or acute issues. He slept really good. His Pain is controlled. His sugar on average is not well controlled. He has no new complaints. - Patient Data Vitals - Most Recent: Last Vital Signs Temp 36.7 C 12/26/16 05:59 Pulse 63 12/26/16 05:59 Resp 18 12/26/16 05:59 BP 123/87 12/26/16 05:59 Pulse Ox 96 12/26/16 05:59 Weight - Most Recent: 116.074 kg I&O - Last 24 Hours: Intake & Output 12/25/16 12/26/16 12/26/16 22:59 06:59 14:59 Intake Total 250 425 Balance 250 425 Lab Results Last 24 Hours: Laboratory Results - last 24 hr 12/25/16 12/25/16 12/25/16 Range/Units 05:49 11:36 16:38 WBC (4.23-9.07) K/mm3 RBC (4.63-6.08) M/mm3 Hgb (13.7-17.5) gm/L Hct (40.1-51.0) % MCV (79.0-92.2) fl MCH (25.7-32.2) pg MCHC (32.2-35.5) g/dl RDW Std Deviation (35.1-43.9) fL Plt Count (163-337) K/mm3 MPV (9.4-12.3) fl Neut % (Auto) (34.0-67.9) % Lymph % (Auto) (21.8-53.1) % [place] % (Auto) (5.3-12.2) % Eos % (Auto) (0.8-7.0) Baso % (Auto) (0.1-1.2) % Neut # (Auto) (1.78-5.38) K/mm3 Lymph # (Auto) (1.32-3.57) K/mm3 [place] # (Auto) (0.30-0.82) K/mm3 Eos # (Auto) (0.04-0.54) K/mm3 Baso # (Auto) (0.01-0.08) K/mm3 POC Glucose 147 H 210 H (80-115) mg/dL Hemoglobin A1c 8.90 H (4.50-6.20) % 12/25/16 12/26/16 12/26/16 Range/Units 20:39 06:04 07:30 WBC 8.48 (4.23-9.07) K/mm3 RBC 4.74 (4.63-6.08) M/mm3 Hgb 14.5 (13.7-17.5) gm/L Hct 40.7 (40.1-51.0) % MCV 85.9 (79.0-92.2) fl MCH 30.6 (25.7-32.2) pg MCHC 35.6 H (32.2-35.5) g/dl RDW Std Deviation 39.8 (35.1-43.9) fL Plt Count 292 (163-337) K/mm3 MPV 9.5 (9.4-12.3) fl Neut % (Auto) 64.3 (34.0-67.9) % Lymph % (Auto) 19.5 L (21.8-53.1) % [place] % (Auto) 11.1 (5.3-12.2) % Eos % (Auto) 4.2 (0.8-7.0) Baso % (Auto) 0.5 (0.1-1.2) % Neut # (Auto) 5.46 H (1.78-5.38) K/mm3 Lymph # (Auto) 1.65 (1.32-3.57) K/mm3 [place] # (Auto) 0.94 H (0.30-0.82) K/mm3 Eos # (Auto) 0.36 (0.04-0.54) K/mm3 Baso # (Auto) 0.04 (0.01-0.08) K/mm3 POC Glucose 179 H 208 H (80-115) mg/dL Hemoglobin A1c (4.50-6.20) % Zhou Results Last 24 Hours: Microbiology 12/25/16 10:25 Gram Stain - Final Foot, Right 12/25/16 09:49 Gram Stain - Final Foot, Right Med Orders - Current: Current Medications Acetaminophen (Tylenol) 650 mg PO Q4H PRN PRN Reason: Pain (Mild 1-3)/fever Hydrocodone Bitart/Acetaminophen ([place] 325-5 Mg) 1 - 2 tab PO Q4H PRN PRN Reason: Pain (mild 1-3) Last Admin: 12/26/16 06:08 Dose: 2 tab Albuterol/Ipratropium (Duoneb 3.0-0.5 Mg/3 Ml) 3 ml NEB Q4H PRN PRN Reason: Shortness Of Breath/wheezing Amlodipine Besylate (Norvasc) 10 mg PO BEDTIME [facility] Last Admin: 12/25/16 20:35 Dose: 10 mg Aspirin (Aspirin) 81 mg PO DAILY [facility] Last Admin: 12/25/16 11:39 Dose: 81 mg Bisacodyl (Dulcolax) 5 mg PO DAILY PRN PRN Reason: Constipation Citalopram Hydrobromide (Celexa) 40 mg PO DAILY [facility] Last Admin: 12/25/16 11:39 Dose: 40 mg Dextrose/Water (Dextrose 50% In Water) 50 ml IVPUSH ASDIRECTED PRN PRN Reason: Hypoglycemia Docusate Sodium (Colace) 100 mg PO BID PRN PRN Reason: Constipation Furosemide (Lasix) 40 mg PO DAILY [facility] Last Admin: 12/25/16 14:14 Dose: Not Given Glipizide (Glucotrol Xl) 5 mg PO BID [facility] Last Admin: 12/25/16 12:03 Dose: Not Given Hydralazine HCl (Apresoline) 20 mg IVPUSH Q4H PRN PRN Reason: Hypertension Last Admin: 12/25/16 11:52 Dose: 20 mg Hydromorphone HCl (Dilaudid) 1 mg IVPUSH Q4H PRN PRN Reason: Pain (severe 7-10) Last Admin: 12/25/16 14:23 Dose: 1 mg Hydroxyzine HCl (Atarax) 25 mg PO QID PRN PRN Reason: Itching Promethazine HCl 12.5 mg/ (Sodium Chloride) 50.5 mls @ 100 mls/hr IV Q6H PRN PRN Reason: Nausea/Vomiting Vancomycin HCl 1 gm/Vancomycin HCl 500 mg/ Sodium Chloride 500 mls @ 333.333 mls/hr IV Q12H [facility] Last Admin: 12/25/16 20:45 Dose: 333.333 mls/hr Insulin Aspart (Novolog) 0 unit SUBCUT QIDACANDBED [facility] PRN Reason: Protocol Last Admin: 12/25/16 23:15 Dose: Not Given Lisinopril (Prinivil) 5 mg PO DAILY [facility] Last Admin: 12/25/16 14:14 Dose: 5 mg Lorazepam (Ativan) 1 mg IV Q6H PRN PRN Reason: Anxiety Metformin HCl (Glucophage) 500 mg PO BID [facility] Last Admin: 12/25/16 11:39 Dose: 500 mg Metoprolol Succinate (Toprol Xl) 100 mg PO BID [facility] Last Admin: 12/25/16 20:43 Dose: 100 mg Metoprolol Tartrate (Lopressor) 5 mg IVPUSH Q4H PRN PRN Reason: Tachycardia Pantoprazole Sodium (Protonix) 40 mg PO DAILY@0700 [facility] Last Admin: 12/26/16 05:59 Dose: 40 mg Polyethylene Glycol (Miralax) 17 gm PO DAILY PRN PRN Reason: Constipation Saccharomyces Boulardii (Florastor) 250 mg PO BID [facility] Last Admin: 12/25/16 20:34 Dose: 250 mg Senna/Docusate Sodium (Senna Plus) 1 tab PO BID PRN PRN Reason: Constipation Simvastatin (Zocor) 10 mg PO BEDTIME [facility] Last Admin: 12/25/16 20:34 Dose: 10 mg Sodium Chloride (Saline Flush) 10 ml FLUSH ASDIRECTED PRN PRN Reason: Keep Vein Open Last Admin: 12/24/16 17:43 Dose: 10 ml Temazepam (Restoril) 15 mg PO BEDTIME PRN PRN Reason: Sleep Vancomycin HCl (Pharmacy To Dose - Vancomycin) 0 dose .XX ASDIRECTED PRN PRN Reason: RX TO DOSE IV VANCOMYCIN Discontinued Medications Hydrocodone Bitart/Acetaminophen ([place] 325-5 Mg) 1 tab PO Q4H PRN PRN Reason: Pain (moderate 4-6) Last Admin: 12/25/16 12:53 Dose: 1 tab Fentanyl (Sublimaze) Confirm Administered Dose 100 mcg .ROUTE .STK-MED ONE Stop: 12/25/16 09:18 Fentanyl (Sublimaze) 50 mcg IVPUSH Q5M PRN PRN Reason: Pain Stop: 12/25/16 12:00 Hydromorphone HCl (Dilaudid) 1 mg IVPUSH ONETIME ONE Stop: 12/24/16 17:41 Last Admin: 12/24/16 17:45 Dose: 1 mg Lidocaine HCl (Xylocaine-Mpf 1%) Confirm Administered Dose 4 mls @ as directed .ROUTE .STK-MED ONE Stop: 12/25/16 09:17 Lactated Ringer's (Ringers, Lactated) Confirm Administered Dose 1,000 mls @ as directed .ROUTE .STK-MED ONE Stop: 12/25/16 12:02 Lidocaine HCl (Xylocaine 1%) Confirm Administered Dose 50 ml .ROUTE .STK-MED ONE Stop: 12/25/16 09:07 Last Admin: 12/25/16 09:46 Dose: 15 ml Meperidine HCl (Demerol) 12.5 mg IVPUSH ONETIME PRN PRN Reason: shivering Stop: 12/25/16 12:00 Midazolam HCl (Versed 1 Mg/Ml) Confirm Administered Dose 2 mg .ROUTE .STK-MED ONE Stop: 12/25/16 09:18 Ondansetron HCl (Zofran) 4 mg IV Q6H PRN PRN Reason: Nausea/Vomiting Ondansetron HCl (Zofran) 4 mg IVPUSH ONETIME PRN PRN Reason: Nausea/Vomiting Stop: 12/25/16 12:00 Propofol (Diprivan 20 Ml) Confirm Administered Dose 200 mg .ROUTE .STK-MED ONE Stop: 12/25/16 09:17 - Exam General: Alert, Oriented, Cooperative, No Acute Distress HEENT: Pupils Equal, Pupils Reactive, EOMI, Mucous Membr. Moist/[place] Neck: Supple, Trachea Midline, No JVD, No Thyromegaly Lungs: Clear to Auscultation, Normal Respiratory Effort Cardiovascular: Regular Rate, Regular Rhythm GI/Abdominal Exam: Normal Bowel Sounds, Soft, Non-Tender, No Organomegaly, No Distention, No Abnormal Bruit, No Mass (Male) Exam: Deferred Back Exam: Normal Inspection, Decreased Range of Motion Extremities: Normal Inspection (on left foot), Normal Range of Motion (on left foot), Non-Tender (on left lower extremity), No Pedal Edema (on his left foot), Normal Capillary Refill, Pedal Edema (on right foot post surgery), Limited Range of Motion (right lower extremity) Peripheral Pulses: 2+: Dorsalis Pedis (L), Dorsalis Pedis (R) Skin: Warm, Dry, Intact Wound/Incisions: Dressing Dry and Intact, No Drainage, Erythema Improving Neurological: No New Focal Deficit. No: Normal Gait Psy/Mental Status: Alert, Normal Affect, Normal Mood - Problem List Review Problem List Initiated/Reviewed/Updated: Yes - My Orders Last 24 Hours: My Active Orders 12/25/16 07:00 Pantoprazole [ProTONIX] 40 mg PO DAILY@0700 12/25/16 09:00 Aspirin 81 mg PO DAILY Citalopram [Celexa] 40 mg PO DAILY Metoprolol Succinate [Toprol XL] 100 mg PO BID Saccharomyces Boulardii [Florastor] 250 mg PO BID 12/25/16 Lunch Consistent Carbohydrate Diet [DIET] Heart Healthy Diet [DIET] 12/26/16 07:30 BASIC METABOLIC PANEL,BMP [CHEM] AM C-REACTIVE PROTEIN [CHEM] AM MAGNESIUM [CHEM] AM 12/26/16 07:50 metFORMIN [Glucophage] 1,000 mg PO BID 12/27/16 05:11 BASIC METABOLIC PANEL,BMP [CHEM] AM C-REACTIVE PROTEIN [CHEM] AM CBC WITH AUTO DIFF [HEME] AM MAGNESIUM [CHEM] AM 12/28/16 05:11 BASIC METABOLIC PANEL,BMP [CHEM] AM C-REACTIVE PROTEIN [CHEM] AM CBC WITH AUTO DIFF [HEME] AM MAGNESIUM [CHEM] AM - Plan Plan:: Assessment/Plan: Acute: Diabetic Foot Wound with Abscess S/p ID POD#1 - Risk Factors: Poorly Controlled DM and Hx/o Intermittent Dermatitis - Failed outpatient treatment with Clindamycin - Poor understanding of overall health and diabetes - Continue IV Vancomycin 1 gram BID with Probiotic-pharmacy to renally dose - Wound culture pos [facility] - Dr. Sutherland following Hyperglycemia with DM2, Fairly Controlled - Poorly controlled: high risk for further accelerated cardiovascular disease - BS on average 150 per ; BS on admission 229 - Unsure of last A1C level is - He is on Victoza, Metformin and Trulicity - Hold Victoza and Trulicity - Continue Glipizide 5 mg po BID; Increased Metformin to 1000 mg po BID - A1C is 8.90 - Urine Microalbumin-pending - Lipid panel: Low HLD level of 26 - Accu-check QID/HS and ISS - Offered Jardiance on discharge- they have not come back with me with an answer yet Subtherapeutic Vancomycin - Trough level of 7 - Pharmacy following Resolved: Leukocytosis - 2/2 Above - WBC 10.96--> 8.4 - CRP 4.9 Chronic: HTN Hx/o DC with 2 stents 4 years ago Hx/o COPD, quit smoking 4 years ago DM2 AYANNA on CPAP Peripheral Edema Obesity with BMI of 35.9 Plan: He is clinically stable Routine AM Labs Continue PT/OT SW/CM for d/c planning Additional orders as above Code status:1 Possible d/c in 1-2 days
[2016-12-26] MEDS: Insulin Aspart 100 Units/ML 3 ML Pen SUBCUT SCH ×4 (08:13→21:05)
[2016-12-26] MEDS: Lisinopril 5 MG Tab PO SCH (08:18)
[2016-12-26] MEDS: Saccharomyces Boulardii (Probiotic) 250 MG Cap PO SCH ×2 (08:18→20:55)
[2016-12-26] MEDS: Aspirin 81 MG Tab.Chew PO SCH (08:18)
[2016-12-26] MEDS: Furosemide 40 MG Tab PO SCH (08:20)
[2016-12-26] MEDS: Citalopram 20 MG Tab PO SCH (08:21)
[2016-12-26] MEDS: Vancomycin 1 GM, Vancomycin 500 MG in Sodium Chloride 0.9% 500 ML IV SCH (08:37)
[2016-12-26] MEDS: Vancomycin 2 GM in Sodium Chloride 0.9% 500 ML IV SCH ×2 (08:52→21:38)
[2016-12-26] MEDS: Metoprolol Succinate 50 MG Tab.ER PO SCH ×2 (08:53→20:55)
[2016-12-26] MEDS ORDERED: Vancomycin 1 GM SDV ONE (20:37)
[2016-12-26] MEDS: Simvastatin 10 MG Tab PO SCH (20:54)
[2016-12-26] MEDS: amLODIPine 10 MG Tab PO SCH (21:03)
--- NOTE | 2016-12-26 22:36 | PCM.DCSUM1 ---
Discharge Summary - Hospital Course Brief History: This is a 66-year-old white male with past medical history of hypertension, SC status post stents placement 4 years ago, history of COPD, quit smoking 4 years ago after SC, AYANNA on CPAP, and obesity who presents to emergency department with complains of two-week history of right foot pain and was found to have diabetic wound abscess. - Discharge Data Discharge Date: 12/27/16 Discharge Disposition: Home, Self-Care 01 Condition: Good - Discharge Diagnosis/Problem(s) (1) Wound abscess SNOMED Code(s): 739030738 ICD Code: T81.4XXA - INFECTION FOLLOWING A PROCEDURE, INITIAL ENCOUNTER Status: Acute Current Visit: Yes Qualifiers: Encounter type: initial encounter Qualified Code(s): T81.4XXA - Infection following a procedure, initial encounter (2) Leukocytosis SNOMED Code(s): 048298630, 510753526 ICD Code: D72.829 - ELEVATED WHITE BLOOD CELL COUNT, UNSPECIFIED Status: Resolved Current Visit: Yes Qualifiers: Leukocytosis type: unspecified Qualified Code(s): D72.829 - Elevated white blood cell count, unspecified (3) Diabetes type 2, uncontrolled SNOMED Code(s): 62098687, 602219405 ICD Code: E11.65 - TYPE 2 DIABETES MELLITUS WITH HYPERGLYCEMIA Status: Chronic Priority: High Current Visit: Yes Qualifiers: Diabetes mellitus complication status: with skin complications Diabetes mellitus complication detail: with foot ulcer Diabetes mellitus fpc insulin use: unspecified fpc insulin use status Qualified Code(s): E11.621 - Type 2 diabetes mellitus with foot ulcer; E11.65 - Type 2 diabetes mellitus with hyperglycemia; L97.509 - Non-pressure chronic ulcer of other part of unspecified foot with unspecified severity - Patient Summary/Data Operative Procedure(s) Performed: ID Complications: None Consults: Consultations 12/24/16 19:29 Consult to Case Management [CONS] Routine Consult to Diabetic Nurse Specialist [CONS] Routine Consult to Frozen Foods Manager [CONS] Routine Consult to Physician [CONS] Routine Consult to Dependency Case Manager [CONS] Routine Consult to Spiritual Care [CONS] Routine OT Evaluation and Treatment [CONS] Routine PT Evaluation and Treatment [CONS] Routine Labs Pending at D/C: None Recommended Follow-up Testing/Procedures: Podiatry for diabetic wound care Hospital Course: Patient was primarily admitted for medical and surgical management of his diabetes wound abscess. He carried a hx/o poorly controlled type 2 diabetes with an A1C of 8.9. He was initially treated with clindamycin as an outpatient but did not respond to it. On presentation, he was found to have diabetic wound abscess. General surgery was consulted for surgical evaluation. Patient underwent I&D and tolerated the procedure well. His wound culture showed Staph aureus susceptible to Levaquin. His hospital course was uncomplicated. The rest of his chronic medical illness remained stable during this admission. On this hospitalization, the patient was offered new diabetic medication with cardiovascular benefit. Unfortunately, he opted out of it. Therefore, he was informed to resume his home diabetic regimen upon discharge. Overall, Mr. Helton has done well and now ready for discharge. He will go home with oral Levaquin 750 mg by mouth to complete a 14 day course of treatment. Patient was advised to check his blood sugars at least twice a day. He is to show his log to his primary care doctor on follow-up appointment. He was further advised to follow Dr. Sutherland's wound care instructions and to see a local makeup sales consultant for further wound care after discharge. The patient expressed understanding and in agreement with the plans as discussed above. All questions were answered. - Patient Instructions Diet: Usual Diet as Tolerated, Diabetic Diet Activity: As Tolerated Driving: Do Not Drive Showering/Bathing: May Shower Wound/Incision Care: Keep Operative Site/Wound Site Clean and Dry, Change Dressing Daily Notify Provider of: Fever, Increased Pain, Swelling and Redness, Drainage, Nausea and/or Vomiting Other/Special Instructions: - Please take all medications as directed. - Check your blood glucose at least twice a day. Log and show it to your family doctor on your follow up appointment. - You may put weight on affected foot. - Recommend you stay out of work until your see your family doctor. - Recommend you follow up with outpatient podiatry for wound care. - Call or follow up with your family if you have any further questions or concerns after discharge - Discharge Plan Prescriptions/Med Rec: Sharon Cmb #3/Fos/Pantethine [Probiotic & Acidophilus] 1 each PO DAILY #14 capsule Levofloxacin [Levaquin] 750 mg PO DAILY #14 tablet Home Medications: Home Meds Aspirin 81 mg PO DAILY 12/24/16 [History] Dulaglutide [Trulicity] 0.75 mg SQ WEEKLY 12/24/16 [History] Escitalopram [Lexapro] 20 mg PO DAILY 12/24/16 [History] Furosemide 40 mg PO DAILY 12/24/16 [History] Hydrocodone/Acetaminophen [Lorcet 5-325 mg Tablet] 1 each PO ASDIRECTED PRN [History] Liraglutide [Victoza] 1.8 mg SUBCUT DAILY 12/24/16 [History] Metoprolol Succinate [Toprol XL] 100 mg PO BID 12/24/16 [History] Omeprazole 20 mg PO DAILY 12/24/16 [History] Pravastatin [Pravachol] 20 mg PO BEDTIME 12/24/16 [History] amLODIPine [Norvasc] 10 mg PO BEDTIME 12/24/16 [History] hydrOXYzine HCl [Atarax] 25 mg PO ASDIRECTED PRN 12/24/16 [History] metFORMIN HCl [Metformin HCl] 500 mg PO BID 12/24/16 [History] Levofloxacin [Levaquin] 750 mg PO DAILY #14 tablet 12/26/16 [Rx] Lactobac Cmb #3/Fos/Pantethine [Probiotic & Acidophilus] 1 each PO DAILY #14 capsule 12/27/16 [Rx] Patient Handouts: Diabetes and Foot Care, Diabetes and Sick Day Management, Cellulitis, Adult, Wuit-cy-Nuwi, Basic Carbohydrate Counting for Diabetes Mellitus Referrals: Crissy Keating RAILROAD COMMISSIONER [Primary Care Provider] - (Discuss possibly starting Jardiance (diabetic medication) with your primary doctor.) - Discharge Summary/Plan Comment DC Time >30 min.: Yes (45 mins) Discharge Summary/Plan Comment: Discharge to Home - General Info Date of Service: 12/27/16 Admission Dx/Problem (Free Text: SSTI with Abscess Subjective Update: Follow Up Functional Status: Reports: Pain Controlled, Tolerating Diet, Ambulating, Urinating. Denies: New Symptoms - Review of Systems General: Denies: Fever, Weakness, Fatigue, Malaise HEENT: Reports: No Symptoms Pulmonary: Denies: Shortness of Breath Cardiovascular: Denies: Chest Pain, Palpitations, Dyspnea on Exertion, Edema, Lightheadedness Gastrointestinal: Denies: Abdominal Pain, Nausea, Vomiting Genitourinary: Reports: No Symptoms Musculoskeletal: Reports: No Symptoms Skin: Denies: Cyanosis, Jaundice, Mottled, Diaphoresis Neurological: Denies: Confusion, Pre-Existing Deficit, Difficulty Walking, Weakness, Gait Disturbance Psychiatric: Denies: Depression, Mood Lability, Anxiety, Agitation, Hallucinations - Patient Data Vitals - Most Recent: Last Vital Signs Temp 37.1 C 12/26/16 15:46 Pulse 58 L 12/26/16 20:55 Resp 18 12/26/16 15:46 BP 163/91 H 12/26/16 21:03 Pulse Ox 95 12/26/16 19:00 Weight - Most Recent: 116.074 kg I&O - Last 24 hours: Intake & Output 12/26/16 12/26/16 12/26/16 06:59 14:59 22:59 Intake Total 425 940 Output Total 1400 Balance 425 -460 Lab Results - Last 24 hrs: Laboratory Results - last 24 hr 12/26/16 12/26/16 12/26/16 Range/Units 06:04 07:30 07:30 WBC 8.48 (4.23-9.07) K/mm3 RBC 4.74 (4.63-6.08) M/mm3 Hgb 14.5 (13.7-17.5) gm/L Hct 40.7 (40.1-51.0) % MCV 85.9 (79.0-92.2) fl MCH 30.6 (25.7-32.2) pg MCHC 35.6 H (32.2-35.5) g/dl RDW Std Deviation 39.8 (35.1-43.9) fL Plt Count 292 (163-337) K/mm3 MPV 9.5 (9.4-12.3) fl Neut % (Auto) 64.3 (34.0-67.9) % Lymph % (Auto) 19.5 L (21.8-53.1) % [place] % (Auto) 11.1 (5.3-12.2) % Eos % (Auto) 4.2 (0.8-7.0) Baso % (Auto) 0.5 (0.1-1.2) % Neut # (Auto) 5.46 H (1.78-5.38) K/mm3 Lymph # (Auto) 1.65 (1.32-3.57) K/mm3 [place] # (Auto) 0.94 H (0.30-0.82) K/mm3 Eos # (Auto) 0.36 (0.04-0.54) K/mm3 Baso # (Auto) 0.04 (0.01-0.08) K/mm3 Sodium 138 (136-145) mEq/L Potassium 3.9 (3.5-5.1) mEq/L Chloride 104 (98-107) mEq/L Carbon Dioxide 26 (21-32) mEq/L Anion Gap 11.9 (5-15) BUN 8 (7-18) mg/dL Creatinine 0.8 (0.7-1.3) mg/dL Est Cr Clr Drug Dosing 102.39 mL/min Estimated GFR (MDRD) > 60 (>60) mL/min BUN/Creatinine Ratio 10.0 L (14-18) Glucose 222 H (80-115) mg/dL POC Glucose 208 H (80-115) mg/dL Calcium 8.7 (8.5-10.1) mg/dL Magnesium 2.0 (1.8-2.4) mg/dl C-Reactive Protein 4.4 H* (<1.0) mg/dL Ur Random Creatinine (30.0-125.0) mg/dL Ur Random Microalbumin (1.3-20.0) mg/L Microalb/Creat Ratio (0-30) mg/g Vancomycin Trough (10.0-20.0) 12/26/16 12/26/16 12/26/16 Range/Units 07:30 11:04 16:28 WBC (4.23-9.07) K/mm3 RBC (4.63-6.08) M/mm3 Hgb (13.7-17.5) gm/L Hct (40.1-51.0) % MCV (79.0-92.2) fl MCH (25.7-32.2) pg MCHC (32.2-35.5) g/dl RDW Std Deviation (35.1-43.9) fL Plt Count (163-337) K/mm3 MPV (9.4-12.3) fl Neut % (Auto) (34.0-67.9) % Lymph % (Auto) (21.8-53.1) % [place] % (Auto) (5.3-12.2) % Eos % (Auto) (0.8-7.0) Baso % (Auto) (0.1-1.2) % Neut # (Auto) (1.78-5.38) K/mm3 Lymph # (Auto) (1.32-3.57) K/mm3 [place] # (Auto) (0.30-0.82) K/mm3 Eos # (Auto) (0.04-0.54) K/mm3 Baso # (Auto) (0.01-0.08) K/mm3 Sodium (136-145) mEq/L Potassium (3.5-5.1) mEq/L Chloride (98-107) mEq/L Carbon Dioxide (21-32) mEq/L Anion Gap (5-15) BUN (7-18) mg/dL Creatinine (0.7-1.3) mg/dL Est Cr Clr Drug Dosing mL/min Estimated GFR (MDRD) (>60) mL/min BUN/Creatinine Ratio (14-18) Glucose (80-115) mg/dL POC Glucose 163 H 233 H (80-115) mg/dL Calcium (8.5-10.1) mg/dL Magnesium (1.8-2.4) mg/dl C-Reactive Protein (<1.0) mg/dL Ur Random Creatinine (30.0-125.0) mg/dL Ur Random Microalbumin (1.3-20.0) mg/L Microalb/Creat Ratio (0-30) mg/g Vancomycin Trough 7.0 L (10.0-20.0) 12/26/16 12/26/16 Range/Units 16:39 21:02 WBC (4.23-9.07) K/mm3 RBC (4.63-6.08) M/mm3 Hgb (13.7-17.5) gm/L Hct (40.1-51.0) % MCV (79.0-92.2) fl MCH (25.7-32.2) pg MCHC (32.2-35.5) g/dl RDW Std Deviation (35.1-43.9) fL Plt Count (163-337) K/mm3 MPV (9.4-12.3) fl Neut % (Auto) (34.0-67.9) % Lymph % (Auto) (21.8-53.1) % [place] % (Auto) (5.3-12.2) % Eos % (Auto) (0.8-7.0) Baso % (Auto) (0.1-1.2) % Neut # (Auto) (1.78-5.38) K/mm3 Lymph # (Auto) (1.32-3.57) K/mm3 [place] # (Auto) (0.30-0.82) K/mm3 Eos # (Auto) (0.04-0.54) K/mm3 Baso # (Auto) (0.01-0.08) K/mm3 Sodium (136-145) mEq/L Potassium (3.5-5.1) mEq/L Chloride (98-107) mEq/L Carbon Dioxide (21-32) mEq/L Anion Gap (5-15) BUN (7-18) mg/dL Creatinine (0.7-1.3) mg/dL Est Cr Clr Drug Dosing mL/min Estimated GFR (MDRD) (>60) mL/min BUN/Creatinine Ratio (14-18) Glucose (80-115) mg/dL POC Glucose 182 H (80-115) mg/dL Calcium (8.5-10.1) mg/dL Magnesium (1.8-2.4) mg/dl C-Reactive Protein (<1.0) mg/dL Ur Random Creatinine 52.9 (30.0-125.0) mg/dL Ur Random Microalbumin 3.1 (1.3-20.0) mg/L Microalb/Creat Ratio 5.8 (0-30) mg/g Vancomycin Trough (10.0-20.0) RACQUEL Results - Last 24 hrs: Microbiology 12/25/16 09:49 Gram Stain - Final Foot, Right Anaerobic Culture - Preliminary Gram Positive Cocci Med Orders - Current: Current Medications Acetaminophen (Tylenol) 650 mg PO Q4H PRN PRN Reason: Pain (Mild 1-3)/fever Hydrocodone Bitart/Acetaminophen ([place] 325-5 Mg) 1 - 2 tab PO Q4H PRN PRN Reason: Pain (mild 1-3) Last Admin: 12/26/16 21:12 Dose: 2 tab Albuterol/Ipratropium (Duoneb 3.0-0.5 Mg/3 Ml) 3 ml NEB Q4H PRN PRN Reason: Shortness Of Breath/wheezing Amlodipine Besylate (Norvasc) 10 mg PO BEDTIME [facility] Last Admin: 12/26/16 21:03 Dose: 10 mg Aspirin (Aspirin) 81 mg PO DAILY [facility] Last Admin: 12/26/16 08:18 Dose: 81 mg Bisacodyl (Dulcolax) 5 mg PO DAILY PRN PRN Reason: Constipation Citalopram Hydrobromide (Celexa) 40 mg PO DAILY [facility] Last Admin: 12/26/16 08:21 Dose: 40 mg Dextrose/Water (Dextrose 50% In Water) 50 ml IVPUSH ASDIRECTED PRN PRN Reason: Hypoglycemia Docusate Sodium (Colace) 100 mg PO BID PRN PRN Reason: Constipation Furosemide (Lasix) 40 mg PO DAILY [facility] Last Admin: 12/26/16 08:20 Dose: 40 mg Glipizide (Glucotrol Xl) 5 mg PO BID [facility] Last Admin: 12/25/16 12:03 Dose: Not Given Hydralazine HCl (Apresoline) 20 mg IVPUSH Q4H PRN PRN Reason: Hypertension Last Admin: 12/25/16 11:52 Dose: 20 mg Hydromorphone HCl (Dilaudid) 1 mg IVPUSH Q4H PRN PRN Reason: Pain (severe 7-10) Last Admin: 12/25/16 14:23 Dose: 1 mg Hydroxyzine HCl (Atarax) 25 mg PO QID PRN PRN Reason: Itching Promethazine HCl 12.5 mg/ (Sodium Chloride) 50.5 mls @ 100 mls/hr IV Q6H PRN PRN Reason: Nausea/Vomiting Vancomycin HCl 2 gm/ Sodium (Chloride) 500 mls @ 250 mls/hr IV Q12H [facility] Last Admin: 12/26/16 21:38 Dose: 250 mls/hr Insulin Aspart (Novolog) 0 unit SUBCUT QIDACANDBED [facility] PRN Reason: Protocol Last Admin: 12/26/16 21:05 Dose: 1 units Lisinopril (Prinivil) 5 mg PO DAILY [facility] Last Admin: 12/26/16 08:18 Dose: 5 mg Lorazepam (Ativan) 1 mg IV Q6H PRN PRN Reason: Anxiety [facility] Metoprolol Succinate (Toprol Xl) 100 mg PO BID [facility] Last Admin: 12/26/16 20:55 Dose: 100 mg Metoprolol Tartrate (Lopressor) 5 mg IVPUSH Q4H PRN PRN Reason: Tachycardia Pantoprazole Sodium (Protonix) 40 mg PO DAILY@0700 [facility] Last Admin: 12/26/16 05:59 Dose: 40 mg Polyethylene Glycol (Miralax) 17 gm PO DAILY PRN PRN Reason: Constipation Saccharomyces Boulardii (Florastor) 250 mg PO BID [facility] Last Admin: 12/26/16 20:55 Dose: 250 mg Senna/Docusate Sodium (Senna Plus) 1 tab PO BID PRN PRN Reason: Constipation Simvastatin (Zocor) 10 mg PO BEDTIME [facility] Last Admin: 12/26/16 20:54 Dose: 10 mg Sodium Chloride (Saline Flush) 10 ml FLUSH ASDIRECTED PRN PRN Reason: Keep Vein Open Last Admin: 12/24/16 17:43 Dose: 10 ml Temazepam (Restoril) 15 mg PO BEDTIME PRN PRN Reason: Sleep Vancomycin HCl (Pharmacy To Dose - Vancomycin) 0 dose .XX ASDIRECTED PRN PRN Reason: RX TO DOSE IV VANCOMYCIN Discontinued Medications Hydrocodone Bitart/Acetaminophen ([place] 325-5 Mg) 1 tab PO Q4H PRN PRN Reason: Pain (moderate 4-6) Last Admin: 12/25/16 12:53 Dose: 1 tab Fentanyl (Sublimaze) Confirm Administered Dose 100 mcg .ROUTE .STK-MED ONE Stop: 12/25/16 09:18 Fentanyl (Sublimaze) 50 mcg IVPUSH Q5M PRN PRN Reason: Pain Stop: 12/25/16 12:00 Hydromorphone HCl (Dilaudid) 1 mg IVPUSH ONETIME ONE Stop: 12/24/16 17:41 Last Admin: 12/24/16 17:45 Dose: 1 mg Vancomycin HCl 1 gm/Vancomycin HCl 500 mg/ Sodium Chloride 500 mls @ 333.333 mls/hr IV Q12H [facility] Last Admin: 12/26/16 08:37 Dose: Not Given Lidocaine HCl (Xylocaine-Mpf 1%) Confirm Administered Dose 4 mls @ as directed .ROUTE .STK-MED ONE Stop: 12/25/16 09:17 Lactated Ringer's (Ringers, Lactated) Confirm Administered Dose 1,000 mls @ as directed .ROUTE .STK-MED ONE Stop: 12/25/16 12:02 Lidocaine HCl (Xylocaine 1%) Confirm Administered Dose 50 ml .ROUTE .STK-MED ONE Stop: 12/25/16 09:07 Last Admin: 12/25/16 09:46 Dose: 15 ml Meperidine HCl (Demerol) 12.5 mg IVPUSH ONETIME PRN PRN Reason: shivering Stop: 12/25/16 12:00 Metformin HCl (Glucophage) 500 mg PO BID TIEN Last Admin: 12/25/16 11:39 Dose: 500 mg Midazolam HCl (Versed 1 Mg/Ml) Confirm Administered Dose 2 mg .ROUTE .STK-MED ONE Stop: 12/25/16 09:18 Ondansetron HCl (Zofran) 4 mg IV Q6H PRN PRN Reason: Nausea/Vomiting Ondansetron HCl (Zofran) 4 mg IVPUSH ONETIME PRN PRN Reason: Nausea/Vomiting Stop: 12/25/16 12:00 Propofol (Diprivan 20 Ml) Confirm Administered Dose 200 mg .ROUTE .STK-MED ONE Stop: 12/25/16 09:17 Vancomycin HCl (Vancomycin) Confirm Administered Dose 2 gm .ROUTE .STK-MED ONE Stop: 12/26/16 20:38 - Exam General: Reports: Alert, Oriented, Cooperative, No Acute Distress HEENT: Reports: Pupils Equal, Pupils Reactive, EOMI, Mucous Membr. Moist/[place] Neck: Reports: Supple, Trachea Midline, No JVD, No Thyromegaly Lungs: Reports: Clear to Auscultation, Normal Respiratory Effort Cardiovascular: Reports: Regular Rate, Regular Rhythm GI/Abdominal Exam: Normal Bowel Sounds, Soft, Non-Tender, No Organomegaly, No Distention, No Abnormal Bruit, No Mass (Male) Exam: Deferred Rectal (Males) Exam: Deferred Back Exam: Reports: Normal Inspection, Decreased Range of Motion Extremities: Normal Inspection, Non-Tender, No Pedal Edema, Normal Capillary Refill, Pedal Edema (right foot) Skin: Reports: Warm, Dry, Intact Wound/Incisions: Reports: Dressing Dry and Intact, No Drainage Neurological: Reports: No New Focal Deficit Psy/Mental Status: Reports: Alert, Normal Affect, Normal Mood *Q Meaningful Use (DIS) - VTE *Q VTE Criteria *Q: - Stroke *Q Stroke Criteria *Q: - AMI *Q AMI Criteria *Q:
[2016-12-27] MEDS: Acetaminophen/HYDROcodone 325-5 MG Tab PO PRN ×2 (06:36→11:35)
[2016-12-27] MEDS: Pantoprazole 40 MG Tab.CR PO SCH (06:36)
[2016-12-27] MEDS: Citalopram 20 MG Tab PO SCH (08:28)
[2016-12-27] MEDS: Lisinopril 5 MG Tab PO SCH (08:29)
[2016-12-27] MEDS: Metoprolol Succinate 50 MG Tab.ER PO SCH (08:29)
[2016-12-27] MEDS: Saccharomyces Boulardii (Probiotic) 250 MG Cap PO SCH (08:29)
[2016-12-27] MEDS: Furosemide 40 MG Tab PO SCH (08:29)
[2016-12-27] MEDS: Aspirin 81 MG Tab.Chew PO SCH (08:29)
[2016-12-27] MEDS: Insulin Aspart 100 Units/ML 3 ML Pen SUBCUT SCH ×2 (08:30→12:43)
[2016-12-27 08:37] VITALS: BP 141/87
[2016-12-27] MEDS ORDERED: Diphtheria,Pertussis(Acell),Tetanus Vaccine 0.5 ML SDV IM ONE (11:51)
[2016-12-27] MEDS: Vancomycin 2 GM in Sodium Chloride 0.9% 500 ML IV SCH (12:41)
--- NOTE | 2016-12-27 14:22 | PN ---
DATE OF SERVICE: 12/26/2016 The patient is doing well. He is afebrile. He was very comfortable. He has no more pain in his foot. The foot is being elevated slightly. The dressing is dry. We will change the dressing tomorrow. Early results from the culture revealed, probably staph aureus, and it is negative for MRSA genetically. MMODAL /[id number]
--- NOTE | 2016-12-27 14:28 | PN ---
DATE OF SERVICE: 12/27/2016 SUBJECTIVE: Satish is doing well today, remains afebrile. He is comfortable. The dressings were removed. There was minimal drainage. The packing was also removed. A moist saline gauze was placed along with dry ones on top to form a wet-to-dry dressing and the area was then covered with a gauze roll and an Kraig Wrap. He has been given a prescription by Dr. Genao for his antibiotics and he will make an appointment to see his primary care on either tomorrow or Wednesday for dressing change and follow up on the wounds. They live approximately an hour and half drive from here which mandates that he seek local care. NORMAN /[id number]
--- NOTE | 2016-12-27 15:34 | CONS ---
CONSULTING PHYSICIAN: Brian Sutherland DATE OF CONSULTATION: 12/24/2016 REFERRING PHYSICIAN: Mack Genao MD. Thank you for asking me to see this nice gentleman in consultation. As you know, he is a 66-year-old male insulin-dependent diabetic, who has sustained a superficial infection of the dorsum of the right foot secondary to probably a blister inside his boot, which he has been caring for with some oral antibiotics for the last 2 to 3 days and despite the fact that they live in [facility], they did wish to come to our institution for care. On examination, his right foot reveals swollen erythematous foot dorsum with an area of necrotic tissue and abrasion of approximately 2 cm in length x 1 cm in width with the surrounding cellulitis. He has good distal pulses posterior tibial area in both feet. The lesion is obviously starting to drain and will need to be debrided and we will plan to do that tomorrow ANJALI. Procedure was explained to him indicating that either under local or general anesthesia we will open the abscess and debride the area of cellulitis and obtain good culture samples. Procedure has been explained to him and he aware of the scope, risks, nature, benefits of the procedure and informed consent has been obtained. NORMAN /[id number]
--- NOTE | 2016-12-27 15:40 | OR ---
DATE OF OPERATION: 12/25/2016 SURGEON: Brian Sutherland ANESTHESIA: PREOPERATIVE DIAGNOSIS: Superficial infection and cellulitis, dorsum right foot. POSTOPERATIVE DIAGNOSIS: Superficial infection and cellulitis, dorsum right foot. OPERATION PERFORMED: Debridement, incision, and drainage, and culturing of tissue dorsum right foot. DESCRIPTION OF PROCEDURE: It was elected with the cast iron drain pipe layer that we would proceed with sedation and local and after satisfactory sedation had been achieved the area was infiltrated in a field block with 1% Xylocaine anesthesia. Following this, the necrotic tissue was incised elliptically, longitudinally, and carried down through the skin to the dorsal fascia of the toe of the foot. The hemostat, the abscess cavity below this was opened and an opaque drainage was obtained, which was cultured aerobically and anaerobically and sent for Gram stain. The area was then irrigated with the pulse objective c developer and then packed with iodoform gauze and dry sterile dressings and an Kraig Wrap. The patient tolerated the procedure well and returned to recovery area in good condition. ESTIMATED BLOOD LOSS: MMODAL /[id number]
== END 2016-12-27 12:50 | disposition home or self-care (01) | DRG 383 ==
LOC: JD.ED 14:17 → JD.MS 17:34
PROVIDERS: ADMIT Internal Medicine; ATTEND Internal Medicine
PROC: 0JBQ0ZZ Excision of Right Foot Subcutaneous Tissue and Fascia, Open Approach (ICD-10-PCS; principal; 2016-12-25)
PROC: 0J9Q0ZX Drainage of Right Foot Subcutaneous Tissue and Fascia, Open Approach, Diagnostic (ICD-10-PCS; 2016-12-25)
PROC: 3E0234Z Introduction of Serum, Toxoid and Vaccine into Muscle, Percutaneous Approach (ICD-10-PCS; 2016-12-27)
DX: L03.115 Cellulitis of right lower limb (principal); L02.611 Cutaneous abscess of right foot; B95.61 Methicillin susceptible Staphylococcus aureus infection as the cause of diseases classified elsewhere; E11.65 Type 2 diabetes mellitus with hyperglycemia; Z79.84 Long term (current) use of oral hypoglycemic drugs; I25.10 Atherosclerotic heart disease of native coronary artery without angina pectoris; I10 Essential (primary) hypertension; I25.2 Old myocardial infarction; Z95.5 Presence of coronary angioplasty implant and graft; J44.9 Chronic obstructive pulmonary disease, unspecified; Z86.14 Personal history of Methicillin resistant Staphylococcus aureus infection; Z91.041 Radiographic dye allergy status; Z79.899 Other long term (current) drug therapy; G47.33 Obstructive sleep apnea (adult) (pediatric); R60.9 Edema, unspecified; E66.9 Obesity, unspecified; Z68.35 Body mass index [BMI] 35.0-35.9, adult; F17.200 Nicotine dependence, unspecified, uncomplicated; E03.9 Hypothyroidism, unspecified; Z23 Encounter for immunization
CPT/HCPCS: 00400; 36415; 80048; 80053; 80061; 80202; 82043; 82962; 83036; 83735; 84439; 84443; 85025; 86140; 87075; 87077; 87147; 87186; 87205; 90715; 93005; 96374; 97161-GP; 97165-GO; 99284; 99285-25; A9270-GY; J0360; J1170; J1815-GY; J2250; J2704; J3010; J3370; J7040; J7050; J7120